=== PATIENT | male | born 1955 | race Caucasian/White ===

== ENCOUNTER 2017-07-08 15:20 | Outpatient (CLI) | payer OTHER ==
--- NOTE | 2017-07-08 19:06 | MRI ---
MRI CERVICAL SPINE WITHOUT CONTRAST: 07/08/17 COMPARISON: None. HISTORY: Neck pain for one month. TECHNIQUE: Multiplanar and multisequence MR images were obtained of the cervical spine without contrast. FINDINGS: Generalized disc desiccation is seen. The vertebral bodies demonstrate normal height without fracture or subluxation. There is straightening of the normal cervical lordosis. The visualized cord demonstrates normal signal throughout. The craniocervical junction is unremarkabl e. The prevertebral and paraspinal soft tissues are unremarkable. C2-3: Unremarkable. C3-4: A moderate disc osteophyte complex is seen. Moderate bilateral and posterior facet arthrosis, l eft greater than right. Moderate central canal stenosis. moderate left and mild right neural foramina l stenosis. C4-5: A small disc osteophyte complex is associated with a superimposed central protrusion. Moderate bilateral posterior facet arthrosis. Mild central canal stenosis. Moderate bilateral neural foraminal stenosis. C5-6: A large disc osteophyte complex is seen. Moderate bilateral posterior facet arthrosis. Severe c entral canal stenosis. Severe bilateral neural foraminal stenosis. C6-7: A moderate disc osteophyte complex is seen. Severe bilateral posterior facet arthrosis. Moderat e to severe central canal stenosis. Moderate to severe bilateral neural foraminal stenosis. C7-T1: Unremarkable. IMPRESSION: Degenerative changes of the cervical spine as above. POS: [facility]RA
== END 2017-07-08 15:21 | disposition home or self-care (01) ==
LOC: SCSMRI 15:20 → BICMRI 15:20 → SCSMRI 15:21
PROVIDERS: ATTEND Family Medicine
DX: M50.30 Other cervical disc degeneration, unspecified cervical region (principal)
CPT/HCPCS: 72141

== ENCOUNTER 2017-09-26 14:54 | Outpatient (CLI) | payer OTHER ==
[2017-09-26 16:08] LABS: #Basophils 0.1 thou/uL (0.0-0.2); #Eosinphils 0.2 thou/uL (0.0-0.7); #Lymphocytes 1.9 thou/uL (1.20-3.40); #Monocytes 0.6 thou/uL (0.11-0.59); #Neutrophils 5.1 thou/uL (1.40-6.50); %Basophils 0.8 % (0.0-1.0); %Lymphocytes 24.5 % (21.0-51.0); %Monocytes 7.6 % (0.0-10.0); %Neutrophils 65.1 % (42.0-75.0); Hemoglobin 15.1 g/dL (14.0-18.0); Mean Corpuscular HGB CONC 34.1 g/dL (32.0-36.0); Mean Corpuscular Hemoglobin 30.2 pg (27.0-31.0); Mean Corpuscular Volume 88.6 fL (78.0-98.0); Mean Platelet Volume 6.7 fL (7.4-10.4); Platelet Count 266 thou/uL (130-400); RBC Distribution Width 11.7 % (11.5-14.5); White Blood Cell (WBC) Count 7.9 thou/uL (4.8-10.8)
== END 2017-09-26 14:55 | disposition home or self-care (01) ==
LOC: LABBT 14:54
PROVIDERS: ATTEND Orthopaedic Surgery Hand Surgery
DX: Z01.812 Encounter for preprocedural laboratory examination (principal); D48.9 Neoplasm of uncertain behavior, unspecified; M65.9 Synovitis and tenosynovitis, unspecified
CPT/HCPCS: 85025

== ENCOUNTER 2017-10-23 13:32 | Outpatient (CLI) | payer OTHER ==
[2017-10-23 14:07] LABS: #Basophils 0.1 thou/uL (0.0-0.2); #Eosinphils 0.2 thou/uL (0.0-0.7); #Lymphocytes 2.3 thou/uL (1.20-3.40); #Monocytes 0.3 thou/uL (0.11-0.59); #Neutrophils 3.9 thou/uL (1.40-6.50); %Eosinophils 2.8 % (0.0-10.0); %Lymphocytes 33.3 % (21.0-51.0); %Monocytes 4.6 % (0.0-10.0); %Neutrophils 58.3 % (42.0-75.0); Hemoglobin 14.6 g/dL (14.0-18.0); Mean Corpuscular HGB CONC 35.1 g/dL (32.0-36.0); Mean Corpuscular Hemoglobin 31.1 pg (27.0-31.0); Mean Corpuscular Volume 88.6 fL (78.0-98.0); Mean Platelet Volume 6.6 fL (7.4-10.4); Platelet Count 263 thou/uL (130-400); RBC Distribution Width 11.6 % (11.5-14.5); Red Blood Cell (RBC) Count 4.68 mill/uL (4.70-6.10); White Blood Cell (WBC) Count 6.8 thou/uL (4.8-10.8)
== END 2017-10-23 13:33 | disposition home or self-care (01) ==
LOC: LABBT 13:32
PROVIDERS: ATTEND Orthopaedic Surgery Hand Surgery
DX: Z01.812 Encounter for preprocedural laboratory examination (principal); T81.89XD Other complications of procedures, not elsewhere classified, subsequent encounter; M10.9 Gout, unspecified
CPT/HCPCS: 85025; 85652

== ENCOUNTER 2017-10-24 12:26 | Day surgery (SDC) | payer OTHER ==
[2017-10-23 13:49] VITALS: BMI 29.0
[2017-10-24] MEDS ORDERED: Clindamycin/D5W 600 mg/50 ml Premix Bag ONE (14:07)
[2017-10-24] MEDS ORDERED: Lidocaine 1% PF 5 ML VIAL ONE (14:49)
[2017-10-24] MEDS ORDERED: Glycopyrrolate 0.2 MG/ML 5 ML SYRINGE ONE (14:49)
[2017-10-24] MEDS ORDERED: Ondansetron HCl/PF 4 MG/2 ML Vial ONE (14:49)
[2017-10-24] MEDS ORDERED: PROPOFOL 200 MG/20 ML VIAL ONE (14:49)
[2017-10-24] MEDS ORDERED: Ketorolac Tromethamine 30 MG/ML VIAL ONE ×2 (14:49→18:10)
[2017-10-24] MEDS ORDERED: Bupivacaine PF 0.5% 30 ML VIAL ONE (16:43)
[2017-10-24] MEDS ORDERED: Bacitracin Zinc Ointment 30 gm TUBE ONE (16:43)
[2017-10-24] MEDS ORDERED: Sodium Chloride 0.9% 10 ML ONE (16:43)
[2017-10-24] MEDS ORDERED: Fentanyl 100 MCG/2 ML VIAL ONE ×2 (16:45→18:04)
[2017-10-24] MEDS ORDERED: Famotidine/PF 20 mg/2ml Vial ONE (16:45)
--- NOTE | 2017-10-27 14:56 | OP ---
DATE OF SURGERY: 10/24/2017 SURGEON: Omar Barrett MD ANESTHESIA: JAMEY House, [place] Anesthesia, general LMA technique augmented by intraoperative in jection of 10 mL of 0.5% metacarpophalangeal joint block level of Marcaine for small finger. No epin ephrine. PREOPERATIVE DIAGNOSES: 1. Gout with nonhealing wound, possible low-grade infection. 2. No findings at the right small finger of infection, despite this, still with some gouty tophaceou s material and some denuded degenerative flexor digitorum profundus and superficialis tendon at the l evel between the A3 and A2 samia. PROCEDURES PERFORMED: 1. Tenotomy flexor digitorum profundus, right small finger. 2. Right small finger wound debridement. 3. Right small finger wound closure, 5 cm without complication. BLOOD LOSS: 10 mL. TOURNIQUET TIME: 8 minutes. Again, no gross infection seen. DESCRIPTION OF PROCEDURE: After successful general LMA technique listed above, limb was prepped and draped. Timeout done appropriately. We identified an area for a block and this was accomplished wit h a 10 mL of 0.5% Marcaine block proximal to the incision. We then exsanguinated the limb, inflated tourniquet to 250 mmHg pressure and then extended the Colette incision 1 cm proximal and 5 mm distal t o allow better exposure. There was marked friable material almost as if there was a residual hematom a here. This was debrided using a combination of the following techniques, which will be used for th e entire procedure. A. Excisional technique. B. Use of Townsend blade, tenotomy scissors, Morse forceps and forceps as well as a small cur et. C. Depth would be down to, but not including bone in all aspects of the flexor tendons at this level in the wound. After we performed a complete debridement that would include a tenotomy, we removed some small amount of tendon mass, which was embedded in tophi from the flexor digitorum profundus and superficialis wi thout violation of the conduit leaving over 70% of the flexure to profunda still intact. After we britton d done this debridement, we then irrigated the wound, this was done with 1 liter of normal saline and Pulsavac pressure and then we used 50 mL total with Angiocath to irrigate the sheath distal and prox imal to the opening. Once this was done, deflated the tourniquet, obtained hemostasis, and closed th e wound with interrupted 4-0 nylon in a simple pattern. No evidence of anesthetic or operative compl ication and wound was clean without abnormality.
== END 2017-10-24 19:20 | disposition home or self-care (01) ==
LOC: SDC 12:26
PROVIDERS: ATTEND Orthopaedic Surgery Hand Surgery
PROC: 0L870ZZ Division of Right Hand Tendon, Open Approach (ICD-10-PCS; principal; 2017-10-24)
PROC: 0JBJ0ZZ Excision of Right Hand Subcutaneous Tissue and Fascia, Open Approach (ICD-10-PCS; principal; 2017-10-24)
DX: T81.89XA Other complications of procedures, not elsewhere classified, initial encounter (principal); M10.9 Gout, unspecified; I10 Essential (primary) hypertension; M19.041 Primary osteoarthritis, right hand; Z79.899 Other long term (current) drug therapy; Z01.812 Encounter for preprocedural laboratory examination
CPT/HCPCS: 85025; 85652; 87070; 87077; 87102; 87186; 87205; 87206; 96372; 96374; A4216; J1885; J2001; J2405; J2704; J3010; J3490; S0020; S0028

== ENCOUNTER 2020-08-28 07:54 | Outpatient (CLI) | payer BC, OTHER | END 2020-08-28 07:55 | disposition home or self-care (01) | LOC: TBSIIMAG 07:54 | PROVIDERS: ATTEND Neurological Surgery | DX: M54.2 Cervicalgia (principal); M47.812 Spondylosis without myelopathy or radiculopathy, cervical region; M48.02 Spinal stenosis, cervical region; M50.221 Other cervical disc displacement at C4-C5 level | CPT/HCPCS: 72141 ==

== ENCOUNTER 2020-11-24 15:42 | Outpatient (CLI) | payer BC, OTHER ==
[2020-11-24 16:39] LABS: Hemoglobin 13.5 g/dL (13.5-17.5); Mean Corpuscular HGB CONC 32.8 g/dL (32.0-36.0); Mean Corpuscular Hemoglobin 29.7 pg (27.0-33.0); Mean Corpuscular Volume 90.3 fl (81.2-95.1); Mean Platelet Volume 9.8 fl (7.4-10.4); Platelet Count 288 10x3/uL (150-450); RBC Distribution Width 12.5 % (11.5-14.5); Red Blood Cell (RBC) Count 4.55 10x6/uL (4.32-5.72); White Blood Cell (WBC) Count 8.2 10x3/uL (3.5-10.5)
[2020-11-24 16:55] LABS: Anion Gap 15 mmol/L (10-20); BUN (Urea Nitrogen) 12 mg/dL (8.4-25.7); Calc. Creatinine Clearance 0 mL/min (70-130); Carbon Dioxide 25 mmol/L (23-31); Chloride 106 mmol/L (98-107); Glucose 113 mg/dL (80-115); Potassium 3.9 mmol/L (3.5-5.1); Sodium 142 mmol/L (136-145)
[2020-11-25 17:41] LABS: SARS-CoV-2 PCR by NAA Not Detected (NotDetected)
== END 2020-11-24 15:43 | disposition home or self-care (01) ==
LOC: LABBT 15:42
PROVIDERS: ATTEND Neurological Surgery
DX: Z01.818 Encounter for other preprocedural examination (principal); M54.12 Radiculopathy, cervical region; Z20.822 Contact with and (suspected) exposure to COVID-19
CPT/HCPCS: 80048; 85027; 93005; 93010; U0003; U0005

== ENCOUNTER 2020-11-29 05:49 | Day surgery (SDC) | payer BC, OTHER ==
[2020-11-28 10:00] VITALS: BMI 29.7
[2020-11-29] MEDS ORDERED: ceFAZolin 2 GM/DEX 5% 100 ML BAG ONE (06:20)
[2020-11-29] MEDS ORDERED: Neomycin-Polymyxin 1 ML AMP ONE (06:33)
[2020-11-29] MEDS ORDERED: Fentanyl 100 MCG/2 ML VIAL ONE (07:33)
[2020-11-29] MEDS ORDERED: PHENYLEPHRINE-NS 100 MCG/ML 10 ML SYRINGE ONE (07:38)
[2020-11-29] MEDS ORDERED: ePHEDrine 50 MG/ML VIAL ONE (07:38)
[2020-11-29] MEDS ORDERED: Ondansetron PF 4 MG/2 ML Vial ONE (07:38)
[2020-11-29] MEDS ORDERED: PROPOFOL 200 MG/20 ML VIAL ONE (07:38)
[2020-11-29] MEDS ORDERED: Rocuronium Bromide 10 MG/ML (10ML VIAL) ONE (07:38)
[2020-11-29] MEDS ORDERED: Dexamethasone 20 MG/5 ML VIAL ONE (07:38)
[2020-11-29] MEDS ORDERED: Ketorolac Tromethamine 30 MG/ML VIAL ONE (07:38)
[2020-11-29] MEDS ORDERED: Glycopyrrolate 0.2 MG/ML 5 ML SYRINGE ONE (07:38)
[2020-11-29] MEDS ORDERED: Lidocaine 1% PF 5 ML VIAL ONE (07:38)
[2020-11-29] MEDS ORDERED: HYDROmorphone 2 MG/ML VIAL ONE (09:02)
[2020-11-29] MEDS ORDERED: Tamsulosin HCl 0.4 MG CAP ONE (09:29)
[2020-11-29] MEDS ORDERED: HYDROcodone/Acetaminophen 5/325 mg Tablet ONE (11:03)
== END 2020-11-29 11:45 | disposition home or self-care (01) ==
LOC: SDC 05:49
PROVIDERS: ATTEND Neurological Surgery
PROC: 0RG20A0 Fusion of 2 or more Cervical Vertebral Joints with Interbody Fusion Device, Anterior Approach, Anterior Column, Open Approach (ICD-10-PCS; principal; 2020-11-29)
DX: M50.122 Cervical disc disorder at C5-C6 level with radiculopathy (principal); I10 Essential (primary) hypertension; E78.5 Hyperlipidemia, unspecified; M10.9 Gout, unspecified; F17.210 Nicotine dependence, cigarettes, uncomplicated; Z79.899 Other long term (current) drug therapy; Z88.8 Allergy status to other drugs, medicaments and biological substances
CPT/HCPCS: 76000; C1713; C1776; J1100; J1170; J1885; J2405; J2704; J3010; J3490

== ENCOUNTER 2020-12-21 08:52 | Outpatient (CLI) | payer BC, OTHER | END 2020-12-21 08:53 | disposition home or self-care (01) | LOC: TBSIIMAG 08:52 | PROVIDERS: ATTEND Physician Assistant | DX: M47.22 Other spondylosis with radiculopathy, cervical region (principal); Z98.890 Other specified postprocedural states | CPT/HCPCS: 72040 ==

== ENCOUNTER 2021-03-08 14:04 | Outpatient (CLI) | payer BC | END 2021-03-08 14:05 | disposition home or self-care (01) | LOC: TBSIIMAG 14:04 | PROVIDERS: ATTEND Neurological Surgery | DX: M54.16 Radiculopathy, lumbar region (principal); M48.061 Spinal stenosis, lumbar region without neurogenic claudication; M48.07 Spinal stenosis, lumbosacral region; M48.05 Spinal stenosis, thoracolumbar region | CPT/HCPCS: 72148 ==

== ENCOUNTER 2024-04-09 08:43 | Outpatient (CLI) | payer OTHER | END 2024-04-09 08:44 | disposition home or self-care (01) | LOC: SCSMRI 08:43 | PROVIDERS: ATTEND Orthopaedic Surgery | DX: M48.061 Spinal stenosis, lumbar region without neurogenic claudication (principal); M51.369 Other intervertebral disc degeneration, lumbar region without mention of lumbar back pain or lower extremity pain; M51.379 Other intervertebral disc degeneration, lumbosacral region without mention of lumbar back pain or lower extremity pain; M48.07 Spinal stenosis, lumbosacral region | CPT/HCPCS: 72148 ==